=== PATIENT | male | born 1975 | race Caucasian/White ===

== ENCOUNTER 2023-01-05 10:25 | Day surgery (SDC) | payer OTHER ==
[2023-01-02 10:44] VITALS: BMI 35.2
[2023-01-05 13:19] VITALS: TEMP 97.8
[2023-01-05 13:23] VITALS: BP 120/70; PULSE 65; RESP 17
== END 2023-01-05 13:05 | disposition home or self-care (01) ==
LOC: FASU-ENDO 10:25
PROVIDERS: ATTEND Internal Medicine Gastroenterology
PROC: 0DJD8ZZ Inspection of Lower Intestinal Tract, Via Natural or Artificial Opening Endoscopic (ICD-10-PCS; principal; 2023-01-05 11:58)
DX: Z12.11 Encounter for screening for malignant neoplasm of colon (principal); K57.30 Diverticulosis of large intestine without perforation or abscess without bleeding